=== PATIENT | female | born 1990 | race Caucasian/White ===

== ENCOUNTER 2024-03-13 17:14 | Inpatient (IN) ==
[2024-03-13] MEDS ORDERED: LIDOCAINE 1% LOCAL 20 ML VIAL INFIL PRN (18:08)
[2024-03-13] MEDS: METOCLOPRAMIDE HCL INJ 5 MG/ML 2 ML VIAL IV SCH (18:26)
[2024-03-13] MEDS: ONDANSETRON INJ 2 MG/ML 2 ML VIAL IV PRN (18:26)
[2024-03-13] MEDS: CALCIUM CARBONATE 500 MG CHEWABLE TAB PO PRN (18:26)
[2024-03-13] MEDS: LACTATED RINGER'S 1,000 ML IV PRN (18:32)
[2024-03-13 18:42] LABS: Hematocrit (blood only) 37.5 % (37.0-47.0); Hemoglobin 12.9 g/dl (12.0-16.0); Mean Corpuscular Hemoglobin 28.7 pg (25.0-34.0); Mean Corpuscular Hgb Conc 34.4 g/dL (32.0-36.0); Mean Corpuscular Volume 83.3 fL (80.0-100.0); Mean Platelet Volume 11.2 fL (9.4-12.4); Platelet Count 298 K/uL (130-400); RDW Coefficient of Variation 14.3 % (11.5-14.5); RDW Standard Deviation 41.8 fL (36.4-46.3)
[2024-03-13] MEDS: FAMOTIDINE 20MG IV PUSH 20 MG/5 ML SYR IV SCH (19:07)
[2024-03-13] MEDS ORDERED: CITRIC ACID/SODIUM CITRATE 15 ML UDC PO PRN (19:13)
[2024-03-13] MEDS: OXYTOCIN 30 UNITS/NSS 30 UNITS/500 ML BAG IV PRN (20:19)
[2024-03-13] MEDS ORDERED: BUTORPHANOL TARTRATE 2 MG/ML VIAL IV PRN (20:24)
--- NOTE | 2024-03-13 21:09 | History & Physical Report ---
Date of Service March 13, 2024 Assessment & Plan (1) resulting from in vitro fertilization: Plan: IUP at 39 6/7 weeks with unfavorable cervix at term . cervical balloon successfully placed pitocin induction begun per protocol epidural when requested anticipate vaginal IV and PO meds ordered to control acid reflux and resultant nausea Admission and Anticipated Discharge Date Admission Date: March 13, 2024 History of Present Illness Primary Care Provider: Luz Marina Marie DO Patient is a 33 yo female EDC 03/14/24 who presents at 39 6/7 weeks for IOL because of IVF . has been complicated by AMA status. testing has been reassuring. She has also had intractable acid reflux and nausea. oral meds have helped minimally although Reglan was most effective. GBS negative/ O negative blood type / Rubella -non immune. Allergies Allergy/AdvReac Type Severity Reaction Status Date / Time latex Allergy Rash Verified 03/13/24 17:54 vancomycin Allergy Redness of Verified 03/12/24 10:34 Skin morphine AdvReac Vomiting Verified 03/13/24 17:54 Home Medications Medication Instructions Recorded Confirmed Type doxylamine succinate 25 mg tablet 25 mg PO Q6H PRN Sleep 08/19/23 03/13/24 History (Unisom (doxylamine)) [id number] 1 tab PO DAILY 08/19/23 03/13/24 History [] pyridoxine (vitamin B6) 1 tab PO DAILY 08/19/23 03/13/24 History metoclopramide HCl 10 mg tablet 10 mg PO Q6H PRN headache #14 tabs 09/01/23 03/13/24 Rx (Reglan) aspirin 81 mg tablet,delayed 81 mg PO DAILY 11/03/23 03/13/24 History release promethazine 12.5 mg tablet 12.5 mg PO Q6H PRN nausea and 02/16/24 03/13/24 Rx vomiting #30 tabs ondansetron HCl 8 mg tablet 8 mg PO Q8H PRN nausea and 02/17/24 03/13/24 Rx vomiting #30 tabs Patient History Medical History (Updated 03/13/24 @ 17:52 by Inga Jacobs RN) SAB (spontaneous ) x11 Clavicle fracture Varicella Insulin resistance PCOS (polycystic ovarian syndrome) Migraine Surgical History (Updated 08/19/23 @ 13:45 by Minerva Cantu RN) H/O abdominal surgery Family History (Updated 08/19/23 @ 13:19 by Minerva Cantu RN) Denies family history of Ovarian cancer Breast cancer Colorectal cancer Social History (Updated 08/19/23 @ 13:21 by Minerva Cantu RN) Smoking Status: Never smoker Do You Dip or Chew Tobacco: No; Hx Alcohol Use: No Hx Substance Use: No Preferred Language: Syriac Communication Ability: Effective 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 Beliefs That Will Affect Care: None marital status: marital status details: Benjamen [phone] pts mother Sofia [phone] Current Living Situation: Spouse Current Living Situation Comment: lives with 2 pets current occupational status: employed current occupation: in a [employer] Other Information That Helps Us Care for You: No Feels Safe at Home: Yes Safety Concerns: Feels Safe At This Time Review of Systems All systems reviewed & are unremarkable except as noted in HPI & below Physical Exam Constitutional: WD/WN, vitals as above Psychiatric: A+Ox3, euthymic affect Genitourinary: OB Exam Abdomen: + vertex and + estimated weight (7-8 pounds); no irregular contractions Manual OB Exam: + cervical dilation (closed), + cervical effacement 50% (soft/anterior) and + station -2 OB Exam Monitor Tracing: + external FHT monitor used, + external uterine monitor used, + category I and + normal FHT variability after speculum was placed vaginally, the cervix was visualized and the catheter was placed into the internal os without diffculty. 40 cc sterile water was then instilled into the balloon. the balloon was then placed on traction and secured to her left thigh. patient tolerated procedure well. Results & Data Vital Signs (Past 12 Hours) Vital Signs Temp Pulse Resp BP 03/13/24 19:04 97.7 F 70 16 143/81 H 03/13/24 17:39 81 138/87 03/13/24 17:28 98.1 F 20 Code Status & VTE Plan VTE Prophylaxis Plan VTE Prophylaxis will be ordered: No Coding Level of Care Code None Diagnoses resulting from in vitro fertilization O09.819 CPT Codes Misx Procedure Codes - 55660 Placement of cervical dilator: 32918 Placement of cervical dilator ([id number]) [place] Bulb Placement for Cervical Ripening - 12397 ([id number])
--- NOTE | 2024-03-14 01:55 | Anesthesiology Consultation ---
Date of Service March 14, 2024 Assessment & Plan Chart Review Chart Review: Acceptable Risk for Labor Epidural Consults Requested none ASA ASA2 Proposed Anesthesia Anesthesia Type: Labor Epidural Risk / Benefits Reviewed With: PT / POA / Parent / Guardian, Accepts Plan and Informed Consent Obtained History Height/Weight Height: 5 ft 9 in Weight: 111.13 kg Allergies Allergy/AdvReac Type Severity Reaction Status Date / Time latex Allergy Rash Verified 03/13/24 17:54 vancomycin Allergy Redness of Verified 03/12/24 10:34 Skin morphine AdvReac Vomiting Verified 03/13/24 17:54 Medications Home Medications Medication Instructions Recorded Confirmed Last Taken doxylamine succinate 25 mg tablet 25 mg PO Q6H PRN Sleep 08/19/23 03/13/24 Unknown (Unisom (doxylamine)) [id number] 1 tab PO DAILY 08/19/23 03/13/24 03/12/24 18:00 [] pyridoxine (vitamin B6) 1 tab PO DAILY 08/19/23 03/13/24 03/12/24 18:00 metoclopramide HCl 10 mg tablet 10 mg PO Q6H PRN headache #14 tabs 09/01/23 03/13/24 03/12/24 18:00 (Reglan) aspirin 81 mg tablet,delayed 81 mg PO DAILY 11/03/23 03/13/24 03/12/24 18:00 release promethazine 12.5 mg tablet 12.5 mg PO Q6H PRN nausea and 02/16/24 03/13/24 03/12/24 18:00 vomiting #30 tabs ondansetron HCl 8 mg tablet 8 mg PO Q8H PRN nausea and 02/17/24 03/13/24 03/12/24 18:00 vomiting #30 tabs Active Medications Generic Name Dose Route Start Last Admin Trade Name Freq PRN Reason Stop Dose Admin Calcium Carbonate 500 mg 03/13/24 18:11 03/13/24 23:46 Calcium Carbonate 500 Mg Chewable Tab PO 04/12/24 18:10 500 mg Q6H PRN Administration Indigestion Lactated Ringer's 1,000 mls @ 125 mls/hr 03/13/24 18:08 03/14/24 01:30 Lr IV 03/15/24 18:07 999 mls/hr .Q8H PRN Administration L&D Protocol Protocol Oxytocin 30 units in 500 mls @ 11 mls/hr 03/13/24 18:08 03/14/24 01:15 Pitocin 30 Units/Nss IV 03/15/24 18:07 0.78 units/hr .Q24H PRN 13 mls/hr Labor Induction/Augmentation Titration Protocol 0.66 UNITS/HR Famotidine 20 mg in 5 mls @ 2.5 mls/min 03/13/24 18:30 03/13/24 19:07 Pepcid 20mg Iv Push IV 04/12/24 18:29 2.5 mls/min Q12H BRANDI Administration Metoclopramide HCl 10 mg 03/13/24 18:30 03/14/24 00:32 Metoclopramide Hcl Inj 5 Mg/Ml 2 Ml Vial IV 04/12/24 18:29 10 mg Q6H BRANDI Administration Ondansetron HCl 4 mg 03/13/24 18:11 03/13/24 18:26 Ondansetron Inj 2 Mg/Ml 2 Ml Vial IV 04/12/24 18:10 4 mg Q6H PRN Administration Nausea And Vomiting Past Medical History Medical History SAB (spontaneous ) x11 Clavicle fracture Varicella Insulin resistance PCOS (polycystic ovarian syndrome) Migraine Exercise / Class Metabolic Activity II 4-5 Yardwork/Stairs/Walk up hill Past Family History Family History Denies family history of Ovarian cancer Breast cancer Colorectal cancer Past Surgical History Surgical History H/O abdominal surgery Past Anesthesia History No Hx of Anesthesia Complications and No Family Hx of Anesthesia Complications History of PONV No Hx of PONV and No Hx of Motion Sickness Social History Smoking Status: Never smoker Do You Dip or Chew Tobacco: No Hx Alcohol Use: No Hx Substance Use: No Physical Exam Vital Signs Last Vital Signs Temp 97.7 F 03/13/24 19:04 Pulse 73 03/14/24 01:50 Resp 16 03/14/24 00:06 BP 124/69 03/14/24 01:06 Pulse Ox 96 03/14/24 01:50 ENMT Mouth: no dentition abnormality Thyromental Distance: > or= 3.5 Finger Breadths Mallampati Class: II Neck normal visual inspection Respiratory normal respiratory effort Auscultation: lungs clear to auscultation bilaterally Cardiovascular Rate/Rhythm: regular rate and regular rhythm Testing Laboratory Results 03/13/24 18:22 Blood Type O Negative 03/13/24 18:22 Antibody Screen NEGATIVE 03/13/24 18:22
[2024-03-14] MEDS: BUPIVACAINE 0.25% PF 30 ML VIAL ONE (02:17)
[2024-03-14] MEDS: LIDOCAINE 2%/EPINEPHRINE 1:200,000 20 ML PF ONE (02:17)
[2024-03-14] MEDS ORDERED: ePHEDrine sulfate 50 MG/ML AMP IV PRN (02:18)
[2024-03-14] MEDS ORDERED: ROPIVACAINE 0.5% PF 5 MG/ML 20 ML VIAL EPI PRN (02:18)
[2024-03-14] MEDS: SODIUM CHLORIDE 0.9% PF INJ 10 ML VIAL ONE (02:18)
[2024-03-14] MEDS ORDERED: ONDANSETRON INJ 2 MG/ML 2 ML VIAL IV PRN ×2 (02:18→19:17)
[2024-03-14] MEDS ORDERED: NALBUPHINE HCL 5 MG in SYRINGE 0 ML IV PRN (02:18)
[2024-03-14] MEDS ORDERED: SODIUM CHLORIDE 0.9% PF INJ 10 ML VIAL EPI PRN (02:18)
[2024-03-14] MEDS ORDERED: LIDOCAINE 2% MPF LOCAL 5 ML VIAL EPI PRN (02:18)
[2024-03-14] MEDS ORDERED: NALOXONE HCL 0.4 MG/1 ML VIAL/CARP IV PRN (02:18)
[2024-03-14] MEDS: fentaNYL citrate PF 100 MCG/2 ML VIAL ONE (02:18)
[2024-03-14] MEDS ORDERED: NALOXONE HCL 1 MG in SODIUM CHLORIDE 0.9% 1,000 ML IV PRN (02:18)
[2024-03-14] MEDS: fentANYL 2 MCG/ML BUPIVacaine 0.125%-NSS 100ML BAG ONE (02:21)
[2024-03-14] MEDS: LIDOCAINE 2%/EPINEPHRINE 1:200,000 20 ML PF EPI STA (02:57)
[2024-03-14] MEDS: BUPIVACAINE 0.25% PF 30 ML VIAL EPI STA (02:57)
[2024-03-14] MEDS: fentaNYL citrate PF 100 MCG/2 ML VIAL EPI STA (02:57)
[2024-03-14] MEDS: SODIUM CHLORIDE 0.9% PF INJ 10 ML VIAL EPI STA (02:57)
[2024-03-14] MEDS: ePHEDrine sulfate 50 MG/ML AMP ONE (06:11)
--- NOTE | 2024-03-14 07:25 | Anesthesia Procedure Note ---
Date of Service March 14, 2024 Anesthesia Epidural Re-Dose Vital Signs Temp Pulse Resp BP Pulse Ox 97.9 F 103 H 18 143/81 H 97 03/14/24 05:03 03/14/24 07:22 03/14/24 05:35 03/14/24 07:06 03/14/24 07:22 Notes Pain Intensity: 7 Dilatation (cm): 4.0 Effacement (%): 70 Called by nursing to evaluate epidural as the patient is having increased pain. The epidural was re-dosed with the following medications (all medications via epidural route) after negative aspiration of the epidural catheter for CSF/HEME. 0.125% Bupivacaine (8ml) with 100 mcg Fentanyl After Epidural Re-Dose Mental Status: alert / awake / arousable Pain: improving with treatment Airway Patency, RR, SpO2: stable & adequate BP & HR: stable & adequate
[2024-03-14] MEDS: fentaNYL citrate PF 100 MCG/2 ML VIAL EPI PRN (07:34)
[2024-03-14] MEDS: BUPIVACAINE 0.25% PF 30 ML VIAL EPI PRN (07:34)
[2024-03-14] MEDS: diphenhydrAMINE 50 MG/ML VIAL IV PRN (09:21)
[2024-03-14] MEDS: fentANYL 2 MCG/ML BUPIVacaine 0.125%-NSS 100ML BAG EPI PRN (09:47)
--- NOTE | 2024-03-14 14:35 | Labor Progress Brief Note ---
Date of Service March 14, 2024 Patient states today induction began yesterday she was 9 cm at noon today and currently now she is anterior lip of the dosimetry large anterior lip position is occiput anterior -1 station she is uncomfortable we will try and redose her epidural with anesthesia's assistance to see if we can get her more comfortable heart rate is reassuring at this stage while there is some progress I think it is slow we will have to consider at the next check that she makes progress. Assessment & Plan Admission and Anticipated Discharge Date Admission Date: March 13, 2024 Results & Data Vital Signs (Past 12 Hours) Vital Signs Temp Pulse Resp BP Pulse Ox 03/14/24 14:28 70 96 03/14/24 14:23 72 97 03/14/24 14:18 73 96 03/14/24 14:13 83 96 03/14/24 14:07 75 182/114 H 03/14/24 14:06 83 96 03/14/24 14:01 101 H 95 03/14/24 13:56 70 95 03/14/24 13:51 70 93 03/14/24 13:46 66 95 03/14/24 13:41 71 94 03/14/24 13:36 95 03/14/24 13:36 70 03/14/24 13:36 65 134/70 03/14/24 13:31 88 97 03/14/24 13:26 79 97 03/14/24 13:21 77 97 03/14/24 13:16 78 95 03/14/24 13:11 97 H 97 03/14/24 13:06 81 127/68 95 03/14/24 13:01 83 96 03/14/24 12:56 113 H 91 03/14/24 12:51 102 H 92 03/14/24 12:46 89 94 03/14/24 12:41 97 H 92 03/14/24 12:36 86 92 03/14/24 12:35 85 132/89 03/14/24 12:31 96 H 94 03/14/24 12:26 104 H 96 03/14/24 12:21 108 H 97 03/14/24 12:12 74 98 03/14/24 12:07 66 98 03/14/24 12:05 75 140/82 03/14/24 12:02 75 98 03/14/24 11:57 75 97 04/24/24 11:52 80 98 03/14/24 11:47 76 94 03/14/24 11:42 78 99 03/14/24 11:37 101 H 99 03/14/24 11:35 103 H 136/88 03/14/24 11:32 111 H 98 03/14/24 11:27 66 95 03/14/24 11:22 66 96 03/14/24 11:17 66 97 03/14/24 11:12 75 97 03/14/24 11:07 67 96 03/14/24 11:05 60 139/76 03/14/24 11:02 66 97 03/14/24 10:57 67 97 03/14/24 10:55 97.9 F 16 03/14/24 10:52 87 99 03/14/24 10:47 78 98 03/14/24 10:42 61 98 03/14/24 10:41 72 88 L 03/14/24 10:37 63 93 03/14/24 10:35 63 137/84 03/14/24 10:34 65 89 L 03/14/24 10:32 65 94 03/14/24 10:27 65 99 03/14/24 10:22 69 90 03/14/24 10:21 79 87 L 03/14/24 10:17 64 96 03/14/24 10:12 84 98 03/14/24 10:07 66 95 03/14/24 10:06 63 138/82 03/14/24 10:02 63 96 03/14/24 09:57 67 98 03/14/24 09:52 75 96 03/14/24 09:47 71 97 03/14/24 09:42 71 97 03/14/24 09:37 73 96 03/14/24 09:35 66 133/72 03/14/24 09:32 79 97 03/14/24 09:27 67 100 03/14/24 09:22 72 95 03/14/24 09:17 69 94 03/14/24 09:12 69 95 03/14/24 09:07 76 97 03/14/24 09:05 73 116/60 03/14/24 09:02 72 95 03/14/24 08:57 89 93 03/14/24 08:55 86 86 L 03/14/24 08:52 87 97 03/14/24 08:47 81 95 03/14/24 08:42 74 95 03/14/24 08:37 78 95 03/14/24 08:36 70 118/63 03/14/24 08:32 76 95 03/14/24 08:27 79 93 03/14/24 08:22 85 93 03/14/24 08:17 72 93 03/14/24 08:12 81 93 03/14/24 08:07 70 93 03/14/24 08:06 78 89 L 03/14/24 08:05 80 114/59 L 03/14/24 08:02 64 93 03/14/24 08:00 98.0 F 16 03/14/24 07:57 67 93 03/14/24 07:52 69 92 03/14/24 07:47 87 91 03/14/24 07:42 89 92 03/14/24 07:37 96 H 94 03/14/24 07:36 87 130/62 03/14/24 07:32 95 03/14/24 07:32 92 H 03/14/24 07:32 84 89 L 03/14/24 07:27 85 94 03/14/24 07:22 103 H 97 03/14/24 07:17 91 H 96 03/14/24 07:12 77 95 03/14/24 07:07 101 H 97 03/14/24 07:06 115 H 143/81 H 03/14/24 07:01 102 H 98 03/14/24 06:56 76 93 03/14/24 06:50 71 96 03/14/24 06:45 80 96 03/14/24 06:44 82 88 L 03/14/24 06:40 74 96 03/14/24 06:37 68 160/75 H 03/14/24 06:36 67 86 L 03/14/24 06:35 67 93 03/14/24 06:30 72 97 03/14/24 06:25 68 97 03/14/24 06:20 65 96 03/14/24 06:15 72 98 03/14/24 06:10 70 95 03/14/24 06:06 86 138/74 03/14/24 06:05 84 93 03/14/24 06:00 67 98 03/14/24 05:55 73 97 0424/24 05:50 62 97 03/14/24 05:45 63 97 03/14/24 05:40 63 98 03/14/24 05:36 61 127/62 03/14/24 05:35 69 18 98 03/14/24 05:30 69 98 03/14/24 05:25 81 98 03/14/24 05:20 68 98 03/14/24 05:15 80 99 03/14/24 05:10 87 16 99 03/14/24 05:06 73 158/79 H 03/14/24 05:05 70 98 03/14/24 05:03 16 03/14/24 05:03 97.9 F 16 03/14/24 05:00 65 96 03/14/24 04:55 67 98 03/14/24 04:50 73 98 03/14/24 04:45 73 98 03/14/24 04:40 72 97 03/14/24 04:37 63 121/63 03/14/24 04:35 60 93 03/14/24 04:30 70 97 03/14/24 04:25 66 97 03/14/24 04:20 85 97 03/14/24 04:15 83 96 03/14/24 04:10 107 H 98 03/14/24 04:05 83 124/77 96 03/14/24 04:00 91 H 97 03/14/24 03:55 59 L 96 03/14/24 03:50 64 97 03/14/24 03:45 62 96 03/14/24 03:40 61 96 03/14/24 03:35 64 113/63 95 03/14/24 03:30 64 96 03/14/24 03:25 63 96 03/14/24 03:20 61 96 03/14/24 03:15 64 96 03/14/24 03:10 63 97 03/14/24 03:05 69 116/66 95 03/14/24 03:00 18 03/14/24 03:00 98.1 F 65 18 96 03/14/24 02:55 79 98 03/14/24 02:50 75 97 03/14/24 02:45 72 18 97 03/14/24 02:40 74 98 03/14/24 02:35 18 03/14/24 02:35 18 03/14/24 02:35 18 03/14/24 02:35 18 03/14/24 02:35 97 03/14/24 02:35 78 03/14/24 02:35 68 124/58 L Coding Level of Care Code None
--- NOTE | 2024-03-14 14:48 | Anesthesia Procedure Note ---
Date of Service March 14, 2024 Anesthesia Epidural Re-Dose Vital Signs Temp Pulse Resp BP Pulse Ox 97.7 F 102 H 18 134/88 97 03/14/24 14:47 03/14/24 14:44 03/14/24 14:47 03/14/24 14:39 03/14/24 14:44 Notes Pain Intensity: 7 Dilatation (cm): 9.0 Effacement (%): 90 Called by nursing to evaluate epidural as the patient is having increased pain. The epidural was re-dosed with the following medications (all medications via epidural route) after negative aspiration of the epidural catheter for CSF/HEME. 0.125 Bupivacaine (8ml) with 100 mcg Fentanyl After Epidural Re-Dose Mental Status: alert / awake / arousable Pain: improving with treatment Airway Patency, RR, SpO2: stable & adequate BP & HR: stable & adequate
--- NOTE | 2024-03-14 17:29 | Delivery Summary ---
Vaginal Delivery Summary Date of Service March 14, 2024 Vaginal Delivery Summary and 2nd Degree LAC Spontaneous vaginal delivery the patient was induced by Dr. Parikh yesterday she made good progress and then slow down the anterior lip after some time she was able to progress beyond the anterior lip and then successfully pushed for over a little more than 30 minutes delivering a baby in occiput anterior position fluid was clear no nuchal cord easily delivered only gentle traction of the baby no excessive force live vigorous male infant Cord clamped and cut cord blood obtained placenta removed with traction IV Pitocin started uterine tone improved second-degree tear repaired with 3-0 Vicryl sponge instrument counts correct rectal exam negative for defects [facility] Vaginal Delivery Charge Delivery Type Details: and 2nd Degree LAC
[2024-03-14] MEDS: OXYTOCIN 30 UNITS/NSS 30 UNITS/500 ML BAG IV PRN (17:31)
[2024-03-14] MEDS ORDERED: bisacodyL 10 MG SUPP PR PRN (17:33)
[2024-03-14] MEDS ORDERED: OXYTOCIN 30 UNITS/NSS 30 UNITS/500 ML BAG IV PRN (17:33)
[2024-03-14] MEDS ORDERED: HYDROCORTISONE ACETATE 25 MG SUPP PR PRN (17:33)
--- NOTE | 2024-03-14 17:41 | Anesthesia Procedure Note ---
Date of Service March 14, 2024 Anesthesia Post Epidural Note Vital Signs Vital Signs: Temp Pulse Resp BP Pulse Ox 98.0 F 89 16 137/84 95 03/14/24 16:00 03/14/24 17:35 03/14/24 16:00 03/14/24 17:35 03/14/24 16:34 Pain Intensity Abdomen: Pain Intensity: 2 Notes Mental Status: alert / awake / arousable and participated in evaluation Nausea / Vomiting: adequately controlled Pain: adequately controlled Airway Patency, RR, SpO2: stable & adequate BP & HR: stable & adequate Hydration State: stable & adequate Neuraxial Anesthesia: was administered and sensory block is resolving Anesthetic Complications: no major complications apparent and Pt Satisfied with anesthetic care Epidural: Removed without complications and With tip intact
[2024-03-14] MEDS: ACETAMINOPHEN 325 MG TAB PO PRN (18:14)
[2024-03-14] MEDS: BENZOCAINE 20% SPRY 85 APPLN/85 GM CAN EXT PRN (18:14)
[2024-03-14] MEDS: DIPHTHER/TETAN/PERTUS Vaccine (Tdap, Adol/Adult) 0.5mL IM ONE (19:19)
[2024-03-14] MEDS: FAMOTIDINE 20MG IV PUSH 20 MG/5 ML SYR IV SCH (19:21)
[2024-03-14] MEDS: POLYETHYLENE (MIRALAX) 17 GM PACK PO PRN (20:53)
[2024-03-14] MEDS: DOCUSATE SODIUM 100 MG CAP PO SCH (20:54)
[2024-03-15] MEDS: IBUPROFEN 600 MG TAB PO PRN (03:23)
[2024-03-15 06:07] LABS: Hematocrit (blood only) 32.6 % (37.0-47.0); Hemoglobin 11.1 g/dl (12.0-16.0); Mean Corpuscular Hemoglobin 28.9 pg (25.0-34.0); Mean Corpuscular Volume 84.9 fL (80.0-100.0); Mean Platelet Volume 11.1 fL (9.4-12.4); Platelet Count 240 K/uL (130-400); RDW Coefficient of Variation 14.8 % (11.5-14.5); RDW Standard Deviation 44.9 fL (36.4-46.3); Red Blood Count 3.84 M/uL (4.20-5.40); White Blood Count 27.51 K/ul (4.8-10.8)
--- NOTE | 2024-03-15 06:43 | Obstetrical Progress Note ---
Date of Service March 15, 2024 Assessment & Plan (1) care and examination: Plan Continues to have hiccups and GERD -On pepcid and tums -Start Protonix 40mg daily WBC count -afebrile -continue to trend HTN -PIH labs Admission and Anticipated Discharge Date Admission Date: March 13, 2024 Supervising Physician Co-Signing Physician Notes Resident Physician Supervision Note: I was present with Dr. Ponce during the history and exam. I discussed the case with the resident and agree with the findings and plan as documented in the note. Any exceptions or clarifications are listed here: [None] Documented By: Abeba Paz MD, FACOG Subjective 33 yo (11)1 post day 1 s/p . Continues to have hiccups and GERD sxs. BP slightly elevated, plts decreased by 40,000 since prior to delivery. WBC count 27,500. Ambulation: ambulating normally Voiding: no voiding problems Passing Gas:: Yes Diet Tolerance:: regular diet Lochia:: Small Feeding Type:: breast feeding Current Pain Level: Resting comfortably this AM in NAD. Review of Systems Review of Systems: reviewed, per HPI Physical Exam Physical Exam: General: patient resting comfortably, NAD, answers questions appropriately. Abd: +BS, soft, NT/ND, uterine fundus firm at umbilicus Ext: warm, no clubbing/cyanosis or edema, Shana's neg. Neuro: nonfocal, no facial droop, moving all extremities Results & Data Vital Signs (Past 12 Hours) Vital Signs Pulse BP 03/14/24 19:14 76 130/65 03/14/24 19:08 72 159/72 H 03/14/24 19:06 78 163/93 H Resident Activity Tracking Resident Involvement: Resident Care Provided Care Provided: Adult Hospital Medicine
[2024-03-15] MEDS: CALCIUM CARBONATE 500 MG CHEWABLE TAB PO PRN ×3 (06:49→16:31)
[2024-03-15 07:44] LABS: Albumin Level 2.7 gm/dl (3.4-5.0); BUN Creatinine Ratio 19.1 (10-20); Bilirubin,Total 0.3 mg/dl (0.2-1.0); Calcium 8.1 mg/dl (8.6-10.3); Creatinine Clr Calc Pharmacy 153.4 ml/min; Est GFR (African American) 131.3 ml/min; Est GFR (Non-African American) 113.3 ml/min; Globulin 2.7 gm/dl (2.5-4.0); Potassium 3.4 mmol/L (3.5-5.1); Total Protein 5.4 gm/dl (6.0-8.3)
[2024-03-15] MEDS ORDERED: PANTOprazole 40 MG in SYRINGE 0 ML IV SCH (08:00)
[2024-03-15] MEDS: PRENATAL VITAMIN 1 TAB PO SCH (08:26)
[2024-03-15] MEDS: METOCLOPRAMIDE HCL INJ 5 MG/ML 2 ML VIAL IV PRN (08:27)
--- NOTE | 2024-03-15 13:37 | Gastrointestinal Consultation ---
Date of Consultation March 15, 2024 Assessment & Plan (1) GERD (gastroesophageal reflux disease): Reflux & hiccups without other associated alarming symptoms or LFT abnormalities. Seems likely esophagitis related. -Agree with initiation of Protonix, but would bump to 40 mg BID -Continue Pepcid in addition to the PPI at 20 mg BID -Add Carafate 1 gm ACHS (2) Hiccups: Evidence based initial recommendations from [employer] printed to provide to patient to improve hiccups. A list of interventions to try include: -Hold breath 5-10 seconds -Valsalva maneuver 5-10 seconds -Sip & gargle cold water -Bite into lemon -Pull on tongue -Swallow dry teaspoon of sugar -While sitting, pull knees to the chest compressing for 30 seconds to 1 minute Plan No acute indication for endoscopy. Supervising Physician Co-Signing Physician Notes Agree with SCOTT Carter as above Interviewed and examined patient and agree with above Abd: Soft, NT, ND, +BS Increase Pantoprazole to 40 mg twice daily Add Carafate 1 g by mouth QID AC and HS for 10 days Provided her with handout for physical maneuvers to reduce Hiccups from [employer]. History of Present Illness Reason for Consultation: "hiccups and heartburn, patient request" Attending Physician: Tabitha Black MD, FACOG History of Present Illness Patient is a 33 yo who is 1 post after vaginal delivery. A GI consult was placed by the OB team at the request of the patient as she is having hiccups and GERD. These symptoms began in . She notes that they continue 1 day post . She notes epigastric discomfort and heartburn. There are no LFT abnormalities--AST, ALT, T bili all appropriate. WBC count 27,500. She is on Pepcid and Tums. Reglan and Zofran are ordered prn. Protonix 40 mg daily was just started today. No alarm symptoms of hematemesis, coffee-ground emesis, melena, or focal abdominal pain. Allergies Allergy/AdvReac Type Severity Reaction Status Date / Time latex Allergy Rash Verified 03/13/24 17:54 vancomycin Allergy Redness of Verified 03/12/24 10:34 Skin morphine AdvReac Vomiting Verified 03/13/24 17:54 Home Medications Medication Instructions Recorded Confirmed Type doxylamine succinate 25 mg tablet 25 mg PO Q6H PRN Sleep 08/19/23 03/13/24 History (Unisom (doxylamine)) [id number] 1 tab PO DAILY 08/19/23 03/13/24 History [] pyridoxine (vitamin B6) 1 tab PO DAILY 08/19/23 03/13/24 History metoclopramide HCl 10 mg tablet 10 mg PO Q6H PRN headache #14 tabs 09/01/23 03/13/24 Rx (Reglan) aspirin 81 mg tablet,delayed 81 mg PO DAILY 11/03/23 03/13/24 History release promethazine 12.5 mg tablet 12.5 mg PO Q6H PRN nausea and 02/16/24 03/13/24 Rx vomiting #30 tabs ondansetron HCl 8 mg tablet 8 mg PO Q8H PRN nausea and 02/17/24 03/13/24 Rx vomiting #30 tabs Patient History Medical History SAB (spontaneous ) x11 Clavicle fracture Varicella Insulin resistance PCOS (polycystic ovarian syndrome) Migraine Surgical History H/O abdominal surgery Family History Denies family history of Ovarian cancer Breast cancer Colorectal cancer Social History Smoking Status: Never smoker Do You Dip or Chew Tobacco: No; Hx Alcohol Use: No Hx Substance Use: No Preferred Language: Sami Communication Ability: Effective Warehouse Order Picker Required: No Beliefs That Will Affect Care: None marital status: marital status details: Benjamen [phone] pts mother Sofia [phone] Current Living Situation: Spouse Current Living Situation Comment: lives with 2 pets current occupational status: employed current occupation: in a jail Other Information That Helps Us Care for You: No Feels Safe at Home: Yes Safety Concerns: Feels Safe At This Time Review of Systems Constitutional: no fever and no chills Gastrointestinal: hiccups, GERD Physical Exam Constitutional: well developed Respiratory: normal respiratory effort Psychiatric: Orientation: alert and oriented x 3 PG Care Time/CCT Total # of Minutes Spent Total Time Spent with Patient: Total time spent is greater than 50% in coordination of care (as documented) at patient's floor/unit and/or counseling patient: Coding Level of Care Code 01443 IN/OBS CONSULT LVL 4,60M Diagnoses GERD (gastroesophageal reflux disease) K21.9 Hiccups R06.6
[2024-03-15] MEDS: PANTOprazole 40 MG TAB PO SCH ×2 (14:06→19:46)
[2024-03-15 15:26] LABS: Creatinine Urine Random 56.7 mg/dl; Protein Creatinine Ratio Urine 0.5 (0-0.2); Total Protein Urine Random 26.8 mg/dl (0-11.9)
[2024-03-15] MEDS ORDERED: ONDANSETRON 4 MG OD TAB PO PRN (16:08)
[2024-03-15] MEDS: METOCLOPRAMIDE HCL 10 MG TABLET PO SCH (17:12)
[2024-03-15] MEDS: SUCRALFATE 1 GM/10 ML UDC PO SCH (17:14)
[2024-03-15] MEDS: FAMOTIDINE 20 MG TAB PO SCH (19:45)
[2024-03-15] MEDS: bisacodyL 5 MG TABEC PO SCH (19:46)
[2024-03-16] MEDS: HYDROCORTISONE 1% CRM 30 GM TUBE EXT PRN (00:04)
--- NOTE | 2024-03-16 06:05 | Obstetrical Progress Note ---
Date of Service March 16, 2024 Assessment & Plan (1) care and examination: Plan: Doing well dc today routine post care Plan Continues to have hiccups and GERD, improving -Pepcid 20mg BID -Protonix 40mg BID -Carafate 1g QID -Reglan 10mg q6h -Tums PRN -Counseled by GI re: techniques to decrease episodes of hiccups HTN -resolved Admission and Anticipated Discharge Date Admission Date: March 13, 2024 Supervising Physician Co-Signing Physician Notes Resident Physician Supervision Note: I was present with Dr. Ponce during the history and exam. I discussed the case with the resident and agree with the findings and plan as documented in the note. Any exceptions or clarifications are listed here: PPD#2 doing well. DC home today. Instructions reviewed. Documented By: Jigna Boyce, Subjective 33 yo (11)1 post day 1 s/p . Continues to have hiccups and GERD sxs improved with multi therapy Ambulation: ambulating normally Voiding: no voiding problems Passing Gas:: Yes Diet Tolerance:: regular diet Lochia:: Small Feeding Type:: breast feeding Current Pain Level: minimal Resting comfortably this AM in NAD. Review of Systems Review of Systems: reviewed, per HPI Physical Exam Physical Exam: General: patient resting comfortably, NAD, answers questions appropriately. Abd: +BS, soft, NT/ND, uterine fundus firm at umbilicus Ext: warm, no clubbing/cyanosis or edema, Shana's neg. Neuro: nonfocal, no facial droop, moving all extremities Results & Data Vital Signs (Past 12 Hours) Vital Signs Temp Pulse Resp BP Pulse Ox O2 Del Method 03/15/24 23:07 36.4 C L 83 19 132/77 96 Room Air 03/15/24 19:40 37.0 C 83 18 139/86 99 Room Air Resident Activity Tracking Resident Involvement: Resident Care Provided Care Provided: Adult Hospital Medicine
[2024-03-16 07:06] LABS: Hematocrit (blood only) 31.7 % (37.0-47.0); Hemoglobin 10.6 g/dl (12.0-16.0)
[2024-03-16] MEDS ORDERED: SUCRALFATE 1 GM/10 ML UDC PO SCH ×2 (11:15→13:00)
[2024-03-16] MEDS: SUCRALFATE 1 GM/10 ML UDC PO SCH (11:41)
[2024-03-16] MEDS: MEASLES, MUMPS & RUBELLA VIRUS VACCINE (MMR) 0.5ML VIAL SQ ONE (15:02)
== END 2024-03-16 15:35 | disposition home or self-care (01) | DRG 807 ==
LOC: 4S1 17:23 → 4E2 03-14 20:25
DX: O99.62 Diseases of the digestive system complicating childbirth; Z88.1 Allergy status to other antibiotic agents; O09.813 Supervision of pregnancy resulting from assisted reproductive technology, third trimester; Z91.040 Latex allergy status; Z88.5 Allergy status to narcotic agent; K21.9 Gastro-esophageal reflux disease without esophagitis; R06.6 Hiccough; O70.1 Second degree perineal laceration during delivery; K20.90 Esophagitis, unspecified without bleeding; Z37.0 Single live birth; Z3A.39 39 weeks gestation of pregnancy

== ENCOUNTER 2025-01-18 14:58 | Observation (INO) ==
[2025-01-18] MEDS: ONDANSETRON INJ 2 MG/ML 2 ML VIAL IV STA ×2 (16:18→21:30)
[2025-01-18] MEDS: SODIUM CHLORIDE 0.9% 1,000 ML IV SCH (16:18)
[2025-01-18 16:37] LABS: Hematocrit (blood only) 45.8 % (37.0-47.0); Hemoglobin 16.2 g/dl (12.0-16.0); Mean Corpuscular Hemoglobin 28.2 pg (25.0-34.0); Mean Corpuscular Hgb Conc 35.4 g/dL (32.0-36.0); Mean Corpuscular Volume 79.7 fL (80.0-100.0); Mean Platelet Volume 8.8 fL (9.4-12.4); Platelet Count 461 K/uL (130-400); RDW Standard Deviation 36.7 fL (36.4-46.3); Red Blood Count 5.75 M/uL (4.20-5.40); White Blood Count 25.81 K/ul (4.8-10.8)
[2025-01-18 16:51] LABS: Pregnancy Test, Serum Negative (Negative)
--- NOTE | 2025-01-18 16:58 | Emergency Department Note ---
Impression & Plan Intractable vomiting with nausea, Dehydration ED Provider Note CHIEF COMPLAINT: Flulike symptom HISTORY OF PRESENTING ILLNESS: The patient is a 34-year-old female who arrives to the emergency department for evaluation of vomiting since 4 AM. She reports nausea vomiting and diarrhea. She reports a recent illness last week. She states she tested negative for COVID, flu, and Lyme last week. Patient denies abdominal pain. She reports now she is having right-sided back pain from vomiting multiple times. She reports no chest pain, diaphoresis, or shortness of breath. She states her bowel movements have been frequent, and are now liquid. She reports no sick contacts. She reports she is up-to-date on vaccinations. REVIEW OF SYSTEMS: See HPI for pertinent positives and pertinent negatives. ALLERGIES: Vancomycin, morphine MEDICATIONS: See below PAST MEDICAL HISTORY: See below PHYSICAL EXAM: VITALS: Vitals are noted on the nurse's note and reviewed by myself. Vital signs stable. GENERAL: 34-year-old female, in no acute distress, nondiaphoretic, well- developed well-nourished. SKIN: The skin was without rashes, erythema, edema, or bruising. HEAD: Normocephalic atraumatic. EYES: Pupils equal round and reactive to light and accommodation. Conjunctivae without injection, sclerae without icterus. Extraocular movements intact. NOSE: Patent, turbinates without inflammation or discharge. No sinus tenderness. MOUTH: Mucous membranes moist. No tonsillar hypertrophy. Pharynx without erythema or exudate. Uvula midline. Airway patent. Tongue does not deviate. NECK: Supple without nuchal rigidity. No lymphadenopathy. HEART: Tachycardia with regular rhythm without murmurs gallops or rubs. LUNGS: Clear to auscultation bilaterally without wheezes, rales or rhonchi. No retractions or accessory muscle use. ABDOMEN: Positive bowel sounds x 4. Soft, nontender, without masses or organomegaly. Lorenzana sign negative. No guarding or rebound tenderness. MUSCULOSKELETAL: TTP right flank, full ROM, however painful leaning forward. NEURO: Patient is alert and oriented, with normal affect. DIFFERENTIAL DIAGNOSIS: Viral syndrome, strep pharyngitis, tonsillitis, mononucleosis, retropharyngeal abscess, peritonsillar abscess, otitis media, sinusitis, bronchitis, pneumonia, as well as other pathologies. ED COURSE AND MEDICAL DECISION MAKING: HISTORY FROM INDEPENDENT HISTORIAN: at bedside a secondary historian. MEDICATIONS GIVEN: 2 L bolus NSS, 4 mg IV Zofran, 5 mg Compazine, 15 mg IV Toradol MONITOR: Continuous shelter monitor: Order was placed for continuous shelter monitor. Patient was placed on the shelter monitor and continuous pulse ox. Patient was noted to be in normal sinus rhythm at an initial rate of 125 bpm per my interpretation. INTERPRETATION OF LABS: I interpreted the labs with full lab results as below in the lab section of this note. Pertinent lab results discussed in the MDM section below. INTERPRETATION OF IMAGING: Imaging studies were interpreted by myself and read by radiology as per the imaging section of this note. MDM SUMMARY: The patient is a 34-year-old female who arrives to the emergency department for evaluation of the above-stated complaint. Patient arrived during a time of high acuity, and high-volume. Initial workup was performed in triage including a saline lock, CBC, CMP, lipase, serum qualitative, urinalysis, stool culture, and C. difficile culture. The patient was provided 1 L normal saline, as well as 4 mg of IV Zofran. Upon evaluation of the patient a second liter of IV fluids, as well as an upper respiratory BioFire panel were obtained. Upper respiratory BioFire panel is negative. The patient continues to have nausea, despite IV Zofran. She also reports a slight headache. She was provided 5 mg of IV Compazine, and 15 mg of IV Toradol. For a short period of time the patient's nausea, and vomiting had subsided and she was able to rest. Tachycardia had improved slightly. She reported a significant reduction in pain. Upon reevaluation the patient did begin to vomit again. At that time CT imaging of the abdomen and pelvis with IV contrast was obtained which per my interpretation shows no intra-abdominal process. The patient was admitted for intractable nausea and vomiting, to the [facility] hospitalist group, Dr. Nicholas. He agreed to evaluate, and accept the patient under his care. Please refer to his documentation for further patient workup and care. DIAGNOSIS: Intractable nausea and vomiting The chart was completed utilizing [employer] voice recognition software. Grammatical errors, random word insertions, pronoun errors, and incomplete sentences are an occasional consequence of this system due to software limitations, ambient noise, and hardware issues. Any formal questions or concerns about the content, text, or information contained within the body of this dictation should be directly addressed to the provider for clarification. Past Med/Surg History Problem List (Updated 01/19/25 @ 00:46 by JAVIER Miller) Dehydration (Acute) Leukocytosis Acute diarrhea Intractable vomiting with nausea (Acute) Obesity Migraine Hiccups GERD (gastroesophageal reflux disease) care and examination Need for rhogam due to Rh negative mother Rubella non-immune status, antepartum Elderly multigravida, currently Encounter for anatomic survey Medical History resulting from in vitro fertilization SAB (spontaneous ) x11 Clavicle fracture Varicella Insulin resistance PCOS (polycystic ovarian syndrome) Surgical History H/O abdominal surgery Family History Denies family history of Ovarian cancer Breast cancer Colorectal cancer Social History Smoking Status: Never smoker Do You Dip or Chew Tobacco: No; Hx Alcohol Use: No Hx Substance Use: No Preferred Language: Venezuelan Communication Ability: Effective Spice Cleaner Required: No Beliefs That Will Affect Care: None marital status: marital status details: Benjamen [phone] pts mother Sofia [phone] Current Living Situation: Spouse Current Living Situation Comment: lives with 2 pets current occupational status: employed current occupation: in a [employer] Feels Safe at Home: Yes Allergies Allergies Allergy/AdvReac Type Severity Reaction Status Date / Time latex Allergy Intermediate Rash Verified 01/08/25 08:41 vancomycin Allergy Mild Redness of Verified 01/08/25 08:41 Skin morphine AdvReac Intermediate Vomiting Verified 01/08/25 08:41 Home Meds Home Medications Medication Instructions Recorded Confirmed cholecalciferol (vitamin D3) 50 0 mcg PO DAILY 05/20/24 01/08/25 mcg (2,000 unit) capsule (Vitamin D3) loratadine 10 mg tablet (Claritin) 10 mg PO DAILY 05/20/24 01/08/25 vit no.95-ferrous 1 tab PO DAILY 05/20/24 01/08/25 fumarate 28 mg-folic acid 800 mcg tablet () famotidine 20 mg tablet (Pepcid) 20 mg PO DAILY 10/24/24 01/08/25 Previous Rx's Medication Instructions Recorded amoxicillin 875 mg-potassium 1 tab PO BID #14 tabs 12/05/24 clavulanate 125 mg tablet norethindrone 1 mg-ethinyl 1 tab PO DAILY #84 tabs 12/10/24 estradiol 20 mcg (21)-iron 75 mg (7) tablet (12/10 (28)) Results & Data (ED) Vital Signs Vital Signs - 24 hr 01/18/25 15:17 01/18/25 17:38 01/18/25 17:39 Temperature 36.7 C Temperature Source Oral Pulse Rate 125 H 95 H Pulse Rate [Apical] 106 H Respiratory Rate 19 15 Respiratory Effort / Characteristics Non-Labored Spontaneous Non-Labored Spontaneous Respiratory Depth Normal Normal Blood Pressure 115/73 Blood Pressure [Right Arm] 141/85 H Blood Pressure Mean 87 Blood Pressure Mean [Right Arm] 103 Blood Pressure Position [Right Arm] Semi-fowlers Pulse Oximetry 100 100 100 Oxygen Delivery Method Room Air Room Air Room Air Sepsis Recent Fever Within 48 Hours No Sepsis New/Unexplained Change in Mental Status No Sepsis Action Taken by Nursing No Action Required 01/18/25 18:16 01/18/25 19:00 01/18/25 21:00 Temperature Temperature Source Pulse Rate 96 H Pulse Rate [Apical] 108 H 109 H Respiratory Rate 18 14 Respiratory Effort / Characteristics Non-Labored Spontaneous Non-Labored Spontaneous Respiratory Depth Normal Normal Blood Pressure Blood Pressure [Right Arm] 127/85 127/77 Blood Pressure Mean Blood Pressure Mean [Right Arm] 99 93 Blood Pressure Position [Right Arm] Semi-fowlers Semi-fowlers Pulse Oximetry 98 98 Oxygen Delivery Method Room Air Room Air Sepsis Recent Fever Within 48 Hours Sepsis New/Unexplained Change in Mental Status Sepsis Action Taken by Detention Medications Current Medication List: was personally reviewed by me Laboratory Data Attestation: I reviewed the patient's lab results. 01/18/25 16:20 01/18/25 16:20 Lab Results 01/18/25 01/18/25 01/18/25 Range/Units 16:20 17:49 19:18 WBC 25.81 H (4.8-10.8) K/ul RBC 5.75 H (4.20-5.40) M/uL Hgb 16.2 H (12.0-16.0) g/dl Hct 45.8 (37.0-47.0) % MCV 79.7 L (80.0-100.0) fL MCH 28.2 (25.0-34.0) pg MCHC 35.4 (32.0-36.0) g/dL RDW Std Deviation 36.7 (36.4-46.3) fL RDW Coeff of Allyn 13.0 (11.5-14.5) % Plt Count 461 H (130-400) K/uL MPV 8.8 L (9.4-12.4) fL Immature Gran % (Auto) 0.5 % Neut % (Auto) 94.4 % Lymph % (Auto) 2.4 % Sterling % (Auto) 2.5 % Eos % (Auto) 0.0 % Baso % (Auto) 0.2 % Neut # (Auto) 24.33 H (1.40-6.50) K/uL Lymph # (Auto) 0.63 L (1.20-3.40) K/uL Sterling # (Auto) 0.65 H (0.11-0.59) K/uL Eos # (Auto) 0.01 (0.00-0.50) K/uL Baso # (Auto) 0.06 (0.00-0.20) K/uL Immature Gran # (Auto) 0.13 (0.01-0.20) K/uL RBC Morphology Unremarkable Sodium 139 (136-145) mmol/L Potassium 3.8 (3.5-5.1) mmol/L Chloride 106 (98-107) mmol/L Carbon Dioxide 20 L (21-32) mmol/L Anion Gap 13 H (3-11) BUN 16 (6-23) mg/dl Creatinine 0.68 (0.6-1.2) mg/dl Est Cr Clr Drug Dosing Not Reportable eGFR 115.68 BUN/Creatinine Ratio 23.5 H (10-20) Glucose 134 H (70-99(Fasting)) mg/dl Calcium 10.2 (8.6-10.3) mg/dl Magnesium 1.8 (1.7-2.4) mg/dl Total Bilirubin 1.1 H (0.2-1.0) mg/dl AST 22 (13-39) U/L ALT 37 (7-52) U/L Alkaline Phosphatase 86 (34-104) U/L Total Protein 8.3 (6.0-8.3) gm/dl Albumin 4.9 (3.4-5.0) gm/dl Globulin 3.4 (2.5-4.0) gm/dl Albumin/Globulin Ratio 1.4 (0.9-2) Lipase 29 (11-82) U/L HCG, Qual Negative (Negative) Urine Color Yellow Urine Appearance Clear (Clear) Urine pH 6.0 (4.5-7.5) Ur Specific [place] 1.033 H (1.000-1.030) Urine Protein 1+ H (Negative) Urine Glucose (UA) Negative (Negative) Urine Ketones 4+ H (Negative) Urine Blood Negative (Negative) Urine Nitrite Negative (Negative) Urine Bilirubin Negative (Negative) Urine Urobilinogen Negative (Negative) Ur Leukocyte Esterase Negative (Negative) Urine WBC (Auto) 0-5 (0-5) /hpf Urine RBC (Auto) 0-2 (0-2) /hpf U Hyaline Cast (Auto) 0-2 (0-2) /lpf U Epithel Cells (Auto) 0-2 (0-2) /hpf Urine Bacteria (Auto) None Seen (None Seen) Urine Opiates Screen Neg (Neg) Ur Methadone, Qual Neg (Neg) Urine Fentanyl Screen Neg (Neg) Urine Barbiturates Neg (Neg) Ur Phencyclidine (PCP) Neg (Neg) U Amphetamin/Meth Scrn Neg (Neg) MDMA (Ecstasy) Screen Neg (Neg) U Benzodiazepines Scrn Neg (Neg) Ur Cocaine Metabolite Neg (Neg) U Marijuana (THC) Screen Pos H (Neg) Adenovirus (PCR) Not Detected (NotDetected) B. pertussis DNA (PCR) Not Detected (NotDetected) B.parapertussis DNA PCR Not Detected (NotDetected) C. pneumoniae DNA (PCR) Not Detected (NotDetected) Coronavirus OC43 (PCR) Not Detected (NotDetected) Coronavirus HKU1 (PCR) Not Detected (NotDetected) Coronavirus 229E (PCR) Not Detected (NotDetected) SARS-CoV-2 (PCR) Not Detected (NotDetected) Coronavirus NL63 (PCR) Not Detected (NotDetected) Human Metapneumovir PCR Not Detected (NotDetected) Influenza Type A (PCR) Not Detected (NotDetected) Influenza Type B (PCR) Not Detected (NotDetected) M. pneumoniae (PCR) Not Detected (NotDetected) Parainfluenza 1 (PCR) Not Detected (NotDetected) Parainfluenza 2 (PCR) Not Detected (NotDetected) Parainfluenza 3 (PCR) Not Detected (NotDetected) Parainfluenza 4 (PCR) Not Detected (NotDetected) RSV (PCR) Not Detected (NotDetected) Entero/Rhino (PCR) Not Detected (NotDetected) Administered Medications Lactated Ringer's (Lr) 1,000 mls @ 80 mls/hr IV .[id number] BRANDI Stop: 01/19/25 22:29 Last Admin: 01/18/25 23:07 Dose: 80 mls/hr Documented By: MMF Potassium Chloride (K Ilir / Wtr) 10 meq in 100 mls @ 100 mls/hr IV Q1H BRANDI Stop: 01/19/25 00:44 Last Admin: 01/19/25 00:33 Dose: 100 mls/hr Documented By: Infusion: 01/19/25 00:25 Dose: Infused Documented By: Admin: 01/18/25 23:08 Dose: 100 mls/hr Documented By: MMF Discontinued Medications Sodium Chloride (Nss) 1,000 mls @ 999 mls/hr IV .Q1H1M BRANDI Stop: 01/18/25 16:23 Last Infusion: 01/18/25 17:23 Dose: Infused Documented By: Admin: 01/18/25 16:18 Dose: 999 mls/hr Documented By: MSRachelle Sodium Chloride (Nss) 1,000 mls @ 999 mls/hr IV .Q1H1M ONE Stop: 01/18/25 17:58 Last Infusion: 01/18/25 19:22 Dose: Infused Documented By: Admin: 01/18/25 17:41 Dose: 999 mls/hr Documented By: MMF Prochlorperazine (Compazine) 2 mls @ 1 mls/min IV ONE ONE Stop: 01/18/25 17:29 Last Admin: 01/18/25 17:41 Dose: 1 mls/min Documented By: MMF Sodium Chloride (Nss) 1,000 mls @ 999 mls/hr IV .Q1H1M ONE Stop: 01/18/25 22:01 Last Infusion: 01/18/25 22:35 Dose: Infused Documented By: Admin: 01/18/25 21:29 Dose: 999 mls/hr Documented By: MMF Prochlorperazine 10 mg/ (Syringe) 10 mls @ 5 mls/min IV ONE ONE Stop: 01/18/25 22:46 Last Admin: 01/18/25 23:07 Dose: 5 mls/min Documented By: MMF Pantoprazole Sodium (Protonix) 40 mg in 10 mls @ 5 mls/min IV NOW ONE Stop: 01/18/25 22:32 Last Admin: 01/18/25 23:07 Dose: 5 mls/min Documented By: MMF Famotidine (Pepcid 20mg Iv Push) 20 mg in 5 mls @ 2.5 mls/min IV NOW STA Stop: 01/18/25 22:32 Last Admin: 01/18/25 23:07 Dose: 2.5 mls/min Documented By: MMF Magnesium Sulfate/Dextrose (Magnesium Sulfate / D5w) 1 gm in 100 mls @ 50 mls/hr IV ONE ONE Stop: 01/19/25 00:31 Last Admin: 01/18/25 23:07 Dose: 50 mls/hr Documented By: MMF Ioversol (Optiray 320 100ml) 93 ml IV ONCE ONE Stop: 01/18/25 21:16 Last Admin: 01/18/25 21:16 Dose: 93 ml Documented By: FREDA Ketorolac Tromethamine (Ketorolac Tromethamine 15 Mg/Ml Vial) 15 mg IV NOW ONE Stop: 01/18/25 17:30 Last Admin: 01/18/25 17:41 Dose: 15 mg Documented By: MMF Ondansetron HCl (Ondansetron Inj 2 Mg/Ml 2 Ml Vial) 4 mg IV NOW STA Stop: 01/18/25 15:22 Last Admin: 01/18/25 16:18 Dose: 4 mg Documented By: Ondansetron HCl (Ondansetron Inj 2 Mg/Ml 2 Ml Vial) 4 mg IV NOW STA Stop: 01/18/25 21:02 Last Admin: 01/18/25 21:30 Dose: 4 mg Documented By: [facility] Imaging Data Radiologist's Impression: Abdomen/Pelvis CT 01/18/25 21:01 Exam(s): CT ABDOMEN + PELVIS With Contrast IV Amt: 93ml optiray 320 EXAM: CT Abdomen and Pelvis With Intravenous Contrast CLINICAL HISTORY: Reason for exam: intractable n/v. TECHNIQUE: Axial computed tomography images of the abdomen and pelvis with intravenous contrast. CTDI is 27.03 mGy and DLP is 1488.81 mGy-cm. Automated exposure control was utilized for the study. A dose lowering technique was utilized adhering to the principles of ALARA. CONTRAST: Patient received 93ml optiray 320 of IV contrast COMPARISON: No relevant prior studies available. FINDINGS: Mediastinum: Small amount of fluid in the distal esophagus. ABDOMEN: Liver: Unremarkable. Gallbladder and bile ducts: No radiodense stones. No biliary ductal dilation. Pancreas: Unremarkable. Spleen: Unremarkable. Adrenals: Unremarkable. Kidneys and ureters: No renal or ureteral calculi. No obstructive changes. Stomach and bowel: No winifred mural thickening. Nonobstructive bowel gas pattern. PELVIS: Appendix: Appendix not identified. Bladder: Unremarkable. Reproductive: Unremarkable. ABDOMEN and PELVIS: Intraperitoneal space: Unremarkable. Bones/joints: No acute fracture. Soft tissues: Unremarkable. Vasculature: No acute process. IMPRESSION: No acute findings in the abdomen or pelvis. Electronically signed by: Marlen Pisano M.D. 01/18/25 21:39 PM Discharge Plan Visit Data Chief Complaint: Flu Like Symptoms Stated Complaint: VOMITING, DIARRHEA ED Provider: Gemma Umanzor ED Midlevel Provider: Caridad Madrid Discharge Problem: Intractable vomiting with nausea, Dehydration
[2025-01-18 17:00] LABS: Alanine Aminotransferase 37 U/L (7-52); Albumin Globulin Ratio 1.4 (0.9-2); Albumin Level 4.9 gm/dl (3.4-5.0); Alkaline Phosphatase 86 U/L (34-104); Anion Gap 13 (3-11); Aspartate Aminotransferase 22 U/L (13-39); BUN Creatinine Ratio 23.5 (10-20); Bilirubin,Total 1.1 mg/dl (0.2-1.0); Blood Urea Nitrogen 16 mg/dl (6-23); Calcium 10.2 mg/dl (8.6-10.3); Carbon Dioxide 20 mmol/L (21-32); Chloride 106 mmol/L (98-107); Globulin 3.4 gm/dl (2.5-4.0); Glucose 134 mg/dl (70-99(Fasting)); Lipase 29 U/L (11-82); Potassium 3.8 mmol/L (3.5-5.1); Sodium 139 mmol/L (136-145); Total Protein 8.3 gm/dl (6.0-8.3)
[2025-01-18 17:03] LABS: Basophils # (auto) 0.06 K/uL (0.00-0.20); Basophils % (auto) 0.2 %; Eosinophils # (auto) 0.01 K/uL (0.00-0.50); Immature Granulocytes # (auto) 0.13 K/uL (0.01-0.20); Immature Granulocytes % (auto) 0.5 %; Lymphocytes # (auto) 0.63 K/uL (1.20-3.40); Lymphocytes % (auto) 2.4 %; Monocytes # (auto) 0.65 K/uL (0.11-0.59); Monocytes % (auto) 2.5 %; Neutrophils # (auto) 24.33 K/uL (1.40-6.50); Neutrophils % (auto) 94.4 %; RBC Morphology Unremarkable
[2025-01-18] MEDS: PROCHLORPERAZINE 2 ML IV ONE (17:41)
[2025-01-18] MEDS: KETOROLAC TROMETHAMINE 15 MG/ML VIAL IV ONE (17:41)
[2025-01-18] MEDS: SODIUM CHLORIDE 0.9% 1,000 ML IV ONE ×2 (17:41→21:29)
[2025-01-18 19:06] LABS: Adenovirus PCR Not Detected (NotDetected); Bordetella parapertussis PCR Not Detected (NotDetected); Bordetella pertussis PCR Not Detected (NotDetected); Chlamydia pneumoniae PCR Not Detected (NotDetected); Coronavirus 229E PCR Not Detected (NotDetected); Coronavirus CoV-2 (COVID19)PCR Not Detected (NotDetected); Coronavirus HKU1 PCR Not Detected (NotDetected); Coronavirus NL63 PCR Not Detected (NotDetected); Coronavirus OC43PCR Not Detected (NotDetected); Human Metapneumovirus PCR Not Detected (NotDetected); Influenza A PCR Not Detected (NotDetected); Influenza B PCR Not Detected (NotDetected); Mycoplasma pneumoniae PCR Not Detected (NotDetected); Parainfluenza Virus 1 PCR Not Detected (NotDetected); Parainfluenza Virus 2 PCR Not Detected (NotDetected); Parainfluenza Virus 3 PCR Not Detected (NotDetected); Parainfluenza Virus 4 PCR Not Detected (NotDetected); Respiratory Syncytial VirusPCR Not Detected (NotDetected); Rhinovirus/Enterovirus PCR Not Detected (NotDetected)
[2025-01-18 19:42] LABS: Appearance Urine Clear (Clear); Bacteria Urine Automated None Seen (None Seen); Bilirubin Urine Negative (Negative); Blood Urine Negative (Negative); Cast Urine Automated 0-2 /lpf (0-2); Color Urine Yellow; Epithelial Cell Urine Auto 0-2 /hpf (0-2); Glucose Urine UA Negative (Negative); Ketones Urine 4+ (Negative); Leukocyte Esterase Urine Negative (Negative); Nitrite Urine Negative (Negative); Protein Urine 1+ (Negative); RBC Urine Automated 0-2 /hpf (0-2); Specific Gravity Urine 1.033 (1.000-1.030); Urobilinogen Urine Negative (Negative); WBC Urine Automated 0-5 /hpf (0-5)
[2025-01-18] MEDS: OPTIRAY 320 100ml IV ONE (21:16)
--- NOTE | 2025-01-18 21:41 | CT Scan Report ---
Exam(s): CT ABDOMEN + PELVIS With Contrast IV Amt: 93ml optiray 320 EXAM: CT Abdomen and Pelvis With Intravenous Contrast CLINICAL HISTORY: Reason for exam: intractable n/v. TECHNIQUE: Axial computed tomography images of the abdomen and pelvis with intravenous contrast. CTDI is 27.03 mGy and DLP is 1488.81 mGy-cm. Automated exposure control was utilized for the study. A dose lowering technique was utilized adhering to the principles of ALARA. CONTRAST: Patient received 93ml optiray 320 of IV contrast COMPARISON: No relevant prior studies available. FINDINGS: Mediastinum: Small amount of fluid in the distal esophagus. ABDOMEN: Liver: Unremarkable. Gallbladder and bile ducts: No radiodense stones. No biliary ductal dilation. Pancreas: Unremarkable. Spleen: Unremarkable. Adrenals: Unremarkable. Kidneys and ureters: No renal or ureteral calculi. No obstructive changes. Stomach and bowel: No winifred mural thickening. Nonobstructive bowel gas pattern. PELVIS: Appendix: Appendix not identified. Bladder: Unremarkable. Reproductive: Unremarkable. ABDOMEN and PELVIS: Intraperitoneal space: Unremarkable. Bones/joints: No acute fracture. Soft tissues: Unremarkable. Vasculature: No acute process. IMPRESSION: No acute findings in the abdomen or pelvis. Electronically signed by: Marlen Pisano M.D. 01/18/25 21:39 PM
--- NOTE | 2025-01-18 22:11 | History & Physical Report ---
Date of Service January 18, 2025 Assessment & Plan (1) Intractable vomiting with nausea: (2) Cannabis hyperemesis syndrome concurrent with and due to cannabis abuse: (3) Acute diarrhea: (4) Leukocytosis: (5) Dehydration: Plan Patient is a 34-year-old female with a past medical history of GERD, migraines, PCOS. She presented to the ED due to intractable vomiting and diarrhea since 4 AM 01/18. She is being admitted for intractable nausea and vomiting for IV nausea control, IV fluids, and stool cultures to be obtained. #intractable nausea and vomiting/diarrhea Anion gap 13 4+ ketones in urine hCG negative TSH, LFTs, lipase WNL BioFire and UA negative CT AP negative for any acute changes Pantoprazole IV twice daily Famotidine IV twice daily Nausea control with IV Compazine 10 Mg IV every 6 hours, Zofran and Benadryl for breakthrough nausea - pt had significant relief with Compazine in ED (1st line) can consider trialing dexamethasone or Ativan if above fails to improve nausea 3L NSS bolus in ED - continue IVF resuscitation with LR at 80 mL/hour K+ 3.8, Mg 1.8 - 1 G IV mag + 20 mEq IV K rider on admission IV Tylenol as needed stool cultures ordered UDS positive for THC - capsaicin ordered on admission, continue as needed differential includes but not limited to viral gastritis, C. difficile infection, cannabis hyperemesis syndrome monitor for electrolyte abnormalities - trend bmp, mag, phosphorus #leukocytosis WBC 25.81 with neutrophil predominance Suspect 2/2 acute infection above UA and biofire negative afebrile on admission trend cbc #dehydration Clinically appears dry H&H elevated BUNs/CR 23.5 Urine specific gravity 1.033 tachycardic with HR 109 on admission IV hydration as above with LR Chronic stable diagnoses: GERD p.o. famotidine converted to IV as above Chronic migraines denies current headache VTE ppx: SCDs Diet: clears, advance as tolerated with nausea and vomiting Dispo: med surg obs anticipate discharge home if n/v improves Admission and Anticipated Discharge Date Admission Date: 01/18/25 History of Present Illness Chief Complaint: flu like sx Primary Care Provider: Mirella Wren DO Patient is a 34-year-old female with a past medical history of GERD, migraines, PCOS. She presented to the ED due to intractable vomiting and diarrhea since 4 AM 01/18. She is being admitted for intractable nausea and vomiting for IV nausea control, IV fluids, and stool cultures to be obtained. Patient seen at bedside. She is nauseous and vomiting on exam. She stated she had significant release with IV Compazine earlier, ordered on admission. She stated that she has been sick with flulike symptoms for approximately 2 weeks and about 10 days ago she had similar symptoms of nausea and vomiting for approximately 5 days that resolved on its own - She saw her PCP at this time and tested negative for COVID, flu, Lyme. She did not have diarrhea at this time. She has not had any sick contacts. Today at 4 AM she woke up and has been vomiting every 20 minutes since, the only time she has been able to tolerate p.o. intake is for a few hours after receiving IV Compazine in the ED. She also has had approximately 3 episodes of liquid diarrhea today. She denies any concerning p.o. intake. She did have a course of Augmentin 12/05 for acute sinusitis. She denies fevers, chills, shortness of breath, chest pain, dizziness, lightheadedness, cough, sore throat, rhinorrhea, abdominal pain, difficulty urinating, dysuria, hematuria, hematemesis, hematochezia. She denies using nicotine products, frequent alcohol use, or any illicit drug use including cannabis use. She denies any past history of Crohn's disease, ulcerative colitis, IBD, DM, previous VTE. She denies any past history of Crohn's or ulcerative colitis. She wishes to be full code. Allergies Allergy/AdvReac Type Severity Reaction Status Date / Time latex Allergy Intermediate Rash Verified 01/08/25 08:41 vancomycin Allergy Mild Redness of Verified 01/08/25 08:41 Skin morphine AdvReac Intermediate Vomiting Verified 01/08/25 08:41 Home Medications Medication Instructions Recorded Confirmed Type cholecalciferol (vitamin D3) 50 0 mcg PO DAILY 05/20/24 01/08/25 History mcg (2,000 unit) capsule (Vitamin D3) loratadine 10 mg tablet (Claritin) 10 mg PO DAILY 05/20/24 01/08/25 History vit no.95-ferrous 1 tab PO DAILY 05/20/24 01/08/25 History fumarate 28 mg-folic acid 800 mcg tablet () famotidine 20 mg tablet (Pepcid) 20 mg PO DAILY 10/24/24 01/08/25 History amoxicillin 875 mg-potassium 1 tab PO BID #14 tabs 12/05/24 01/08/25 Rx clavulanate 125 mg tablet norethindrone 1 mg-ethinyl 1 tab PO DAILY #84 tabs 12/10/24 01/08/25 Rx estradiol 20 mcg (21)-iron 75 mg (7) tablet (12/10 (28)) Past Med/Surg History Problem List (Updated 01/19/25 @ 05:53 by Hien Myrick PA-C) Cannabis hyperemesis syndrome concurrent with and due to cannabis abuse Dehydration (Acute) Leukocytosis Acute diarrhea Intractable vomiting with nausea (Acute) Obesity Migraine Hiccups GERD (gastroesophageal reflux disease) care and examination Need for rhogam due to Rh negative mother Rubella non-immune status, antepartum Elderly multigravida, currently Encounter for anatomic survey Medical History resulting from in vitro fertilization SAB (spontaneous ) x11 Clavicle fracture Varicella Insulin resistance PCOS (polycystic ovarian syndrome) Surgical History H/O abdominal surgery Family History Denies family history of Ovarian cancer Breast cancer Colorectal cancer Social History Smoking Status: Never smoker Do You Dip or Chew Tobacco: No; Hx Alcohol Use: No Hx Substance Use: No Preferred Language: Citizen Of [place] Communication Ability: Effective Oil Sprayer Required: No Beliefs That Will Affect Care: None marital status: marital status details: Benjamen [phone] pts mother Sofia [phone] Current Living Situation: Spouse Current Living Situation Comment: lives with 2 pets current occupational status: employed current occupation: in a group home Other Information That Helps Us Care for You: No Feels Safe at Home: Yes Assistive Devices: None Review of Systems Review of Systems: see HPI Physical Exam Physical Exam: The patient is awake, alert and oriented 3, well developed and well nourished, normocephalic and atraumatic, diaphoretic, pale. HEENT- EOMI, mucous membranes dry. Hearing grossly intact. Heart-normal S1 and S2. No murmurs, rubs or gallops. Lungs-clear bilaterally, no respiratory distress, no accessory muscle use. Abdomen-normal bowel sounds and soft. No ascites noted. Non-tender. Extremities- no clubbing, cyanosis, or edema. Rheumatologic-normal range of motion. Psychiatric-normal affect. Results & Data Results & Data Vital Signs (Past 12 Hours) Vital Signs Temp Pulse Pulse Resp BP BP Pulse Ox 01/18/25 21:00 109 H 14 127/77 98 01/18/25 19:00 108 H 18 127/85 98 01/18/25 18:16 96 H 01/18/25 17:39 106 H 15 141/85 H 100 01/18/25 17:38 95 H 100 01/18/25 15:17 36.7 C 125 H 19 115/73 100 O2 Del Method 01/18/25 21:00 Room Air 01/18/25 19:00 Room Air 01/18/25 18:16 01/18/25 17:39 Room Air 01/18/25 17:38 Room Air 01/18/25 15:17 Room Air Laboratory Results Reviewed CBC, CMP, BioFire, mag, hCG, lipase Diagnostic Findings reviewed AP CT Medications Administered ED3L NSS bolus, 4 Mg IV Zofran x 2, Toradol 15 Mg IV, Compazine 10 Mg IV AdmissionCompazine 10 Mg IV, Protonix IV, famotidine ID, LR at 80 mL/hour, 1G IV mag, 2 bags K rider ECG Additional Comments: ordered Code Status & VTE Plan Code Status Full code VTE Prophylaxis Plan VTE Prophylaxis will be ordered: Yes Supervising Physician Co-Signing Physician Notes Attending addendum: I have physically seen this patient, have supervised the CYNTHIA's activities, and agree with the H&P unless as otherwise noted. Assessment and Plan: The patient is a 34-year-old female with past medical history including GERD, migraines, and PCOS. She presents to the emergency department for intractable nausea, vomiting and diarrhea since 4 AM on 01/18. [facility] and treatment of above. Intractable nausea and vomiting/also notes some diarrhea- 4+ ketones in urine hCG negative BioFire and UA negative CT scan abdomen pelvis negative for any acute changes Pantoprazole 40 mg IV twice daily Famotidine 20 mg IV every 12 hours Patient had multiple medications for control nausea, with the most favorable being Compazine, which we continue 10 mg IV every 6 hours Zofran 4 mg IV every 6 hours as needed for breakthrough nausea Benadryl 25 mg IV every 4 hours. Breakthrough nausea Additional possibilities would be a trial of dexamethasone and more Ativan IV if nausea fails to improve Patient status post 3 L normal saline bolus in the ED Continue IV fluids auscultation with LR at 80 mL/h x 1 additional liter Acetaminophen 1 g IV every 8 hours as needed for mild pain or fever Patient denies use of marijuana, however, UDS is positive for THC Capsaicin ordered on admission Remainder main differential at this point includes viral gastritis versus C. dif ficile infection and cannabinol hyperemesis syndrome Remaining orders and notations as noted PG Care Time/CCT Total # of Minutes Spent Total Time Spent with Patient: Total time spent is greater than 50% in coordination of care (as documented) at patient's floor/unit and/or counseling patient: Coding Level of Care Code 13845 INT INP/OBS CARE 3/75MIN Diagnoses Intractable vomiting with nausea R11.2 Cannabis hyperemesis syndrome concurrent with and due to cannabis abuse F12.188 Acute diarrhea R19.7 Leukocytosis D72.829 Dehydration E86.0
[2025-01-18 22:29] LABS: Magnesium 1.8 mg/dl (1.7-2.4)
[2025-01-18] MEDS: FAMOTIDINE 20MG IV PUSH 20 MG/5 ML SYR IV STA (23:07)
[2025-01-18] MEDS: LACTATED RINGER'S 1,000 ML IV SCH (23:07)
[2025-01-18] MEDS: PROCHLORPERAZINE 10 MG in SYRINGE 8 ML IV ONE (23:07)
[2025-01-18] MEDS: PANTOprazole 40 MG/10 ML SYR IV ONE (23:07)
[2025-01-18] MEDS: MAGNESIUM SULFATE / D5W 1 GM/100 ML BAG IV ONE (23:07)
[2025-01-18] MEDS: POTASSIUM CHLORIDE / WTR 10 MEQ/100 ML PLCT IV SCH (23:08)
[2025-01-18 23:24] LABS: Amphetamines+Metham, Urine Neg (Neg); Barbiturates, Urine Neg (Neg); Benzodiazepine, Urine Neg (Neg); Cocaine, Urine Neg (Neg); Fentanyl, Urine Neg (Neg); MDMA (Ecstacy), Urine Neg (Neg); Marijuana, Urine Pos (Neg); Methadone, Urine Neg (Neg); Opiate, Urine Neg (Neg); Phencyclidine, Urine Neg (Neg)
[2025-01-19] MEDS ORDERED: ONDANSETRON INJ 2 MG/ML 2 ML VIAL IV PRN (02:08)
[2025-01-19] MEDS ORDERED: CAPSAICIN CR 0.075% 60 GM TUBE EXT PRN (02:24)
[2025-01-19] MEDS: CAPSAICIN CR 0.075% 60 GM TUBE EXT STA (03:53)
--- NOTE | 2025-01-19 06:52 | Electrocardiogram Report ---
Test Reason : Blood Pressure : */* mmHG Vent. Rate : 93 BPM Atrial Rate : 93 BPM P-R Int : 168 ms QRS Dur : 88 ms QT Int : 356 ms P-R-T Axes : 60 66 35 degrees QTcB Int : 442 ms Normal sinus rhythm Normal ECG No previous ECGs available Confirmed by Carlito Duckworth ([id number]) on 01/19/2025 6:52:16 AM Referred By: REFERRED SELF Confirmed By: Carlito Duckworth
[2025-01-19 07:07] LABS: Basophils # (auto) 0.03 K/uL (0.00-0.20); Basophils % (auto) 0.2 %; Eosinophils # (auto) 0.02 K/uL (0.00-0.50); Eosinophils % (auto) 0.2 %; Hematocrit (blood only) 37.7 % (37.0-47.0); Hemoglobin 13.2 g/dl (12.0-16.0); Immature Granulocytes # (auto) 0.05 K/uL (0.01-0.20); Immature Granulocytes % (auto) 0.4 %; Mean Corpuscular Hemoglobin 28.3 pg (25.0-34.0); Mean Corpuscular Volume 80.7 fL (80.0-100.0); Monocytes % (auto) 6.7 %; Neutrophils # (auto) 9.92 K/uL (1.40-6.50); Neutrophils % (auto) 82.5 %; Platelet Count 294 K/uL (130-400); RDW Coefficient of Variation 13.2 % (11.5-14.5); RDW Standard Deviation 38.2 fL (36.4-46.3); Red Blood Count 4.67 M/uL (4.20-5.40); White Blood Count 12.02 K/ul (4.8-10.8)
[2025-01-19 07:14] LABS: Albumin Globulin Ratio 1.4 (0.9-2); Albumin Level 3.4 gm/dl (3.4-5.0); BUN Creatinine Ratio 14.5 (10-20); Bilirubin,Total 0.6 mg/dl (0.2-1.0); Calcium 7.5 mg/dl (8.6-10.3); Creatinine Clr Calc Pharmacy 182.4 ml/min; Globulin 2.4 gm/dl (2.5-4.0); Magnesium 1.9 mg/dl (1.7-2.4); Phosphorus 1.9 mg/dl (2.5-4.9); Potassium 3.3 mmol/L (3.5-5.1); Total Protein 5.8 gm/dl (6.0-8.3)
[2025-01-19] MEDS ORDERED: POTASSIUM PHOS 3 MMOL/1 ML INFUSION IV STA (08:12)
--- NOTE | 2025-01-19 08:12 | Hospitalist Progress Note ---
Date of Service January 19, 2025 Assessment & Plan (1) Intractable vomiting with nausea: (2) Cannabis hyperemesis syndrome concurrent with and due to cannabis abuse: (3) Acute diarrhea: (4) Leukocytosis: (5) Dehydration: Plan Patient is a 34-year-old female with a past medical history of GERD, migraines, PCOS. She presented to the ED due to intractable vomiting and diarrhea since 4 AM 01/18. She is being admitted for intractable nausea and vomiting for IV nausea control, IV fluids, and stool cultures to be obtained. #intractable nausea and vomiting/diarrhea Anion gap 13 4+ ketones in urine hCG negative TSH, LFTs, lipase WNL BioFire and UA negative CT AP negative for any acute changes Pantoprazole IV twice daily Famotidine IV twice daily Nausea control with IV Compazine 10 Mg IV every 6 hours, Zofran and Benadryl for breakthrough nausea - pt had significant relief with Compazine in ED (1st line) can consider trialing dexamethasone or Ativan if above fails to improve nausea 3L NSS bolus in ED - continue IVF resuscitation with LR at 80 mL/hour K+ 3.8, Mg 1.8 - 1 G IV mag + 20 mEq IV K rider on admission IV Tylenol as needed stool cultures ordered UDS positive for THC - capsaicin ordered on admission, continue as needed differential includes but not limited to viral gastritis, C. difficile infection, cannabis hyperemesis syndrome monitor for electrolyte abnormalities - trend bmp, mag, phosphorus #leukocytosis WBC 25.81 with neutrophil predominance Suspect 2/2 acute infection above UA and biofire negative afebrile on admission trend cbc #dehydration Clinically appears dry H&H elevated BUNs/CR 23.5 Urine specific gravity 1.033 tachycardic with HR 109 on admission IV hydration as above with LR Chronic stable diagnoses: GERD p.o. famotidine converted to IV as above Chronic migraines denies current headache VTE ppx: SCDs Diet: clears, advance as tolerated with nausea and vomiting Dispo: med surg obs anticipate discharge home if n/v improves Admission and Anticipated Discharge Date Admission Date: January 18, 2025 Results & Data Results & Data Vital Signs (Past 12 Hours) Vital Signs Temp Pulse Pulse Pulse Resp BP Pulse Ox 01/19/25 07:22 98.6 F 93 H 20 115/71 95 01/19/25 02:12 99.9 F H 105 H 18 126/67 95 01/19/25 01:30 107 H 20 170/84 H 96 01/19/25 00:00 104 H 20 164/82 H 94 01/18/25 23:41 104 H 01/18/25 23:00 109 H 17 165/87 H 96 01/18/25 21:00 109 H 14 127/77 98 O2 Del Method 01/19/25 07:22 Room Air 01/19/25 02:12 Room Air 01/19/25 01:30 Room Air 01/19/25 00:00 Room Air 01/18/25 23:41 01/18/25 23:00 Room Air 01/18/25 21:00 Room Air PG Care Time/CCT Total # of Minutes Spent Total Time Spent with Patient: Total time spent is greater than 50% in coordination of care (as documented) at patient's floor/unit and/or counseling patient: Coding Diagnoses Intractable vomiting with nausea R11.2 Cannabis hyperemesis syndrome concurrent with and due to cannabis abuse F12.188 Acute diarrhea R19.7 Leukocytosis D72.829 Dehydration E86.0
[2025-01-19] MEDS: PANTOprazole 40 MG/10 ML SYR IV SCH (08:17)
[2025-01-19] MEDS: FAMOTIDINE 20MG IV PUSH 20 MG/5 ML SYR IV SCH (08:18)
[2025-01-19] MEDS: POTASSIUM PHOSPHATE 15 MMOL in SODIUM CHLORIDE 0.9% 250 ML IV ONE (09:42)
[2025-01-19 10:07] LABS: Appearance Urine Clear (Clear); Bilirubin Urine Negative (Negative); Blood Urine Negative (Negative); Color Urine Yellow; Glucose Urine UA Negative (Negative); Ketones Urine 1+ (Negative); Leukocyte Esterase Urine Negative (Negative); Nitrite Urine Negative (Negative); Protein Urine Negative (Negative); Specific Gravity Urine 1.021 (1.000-1.030); Urobilinogen Urine Negative (Negative); pH Urine 6.5 (4.5-7.5)
--- NOTE | 2025-01-19 12:55 | Hospitalist Progress Note ---
Date of Service January 19, 2025 Assessment & Plan (1) Intractable vomiting with nausea: (2) Cannabis hyperemesis syndrome concurrent with and due to cannabis abuse: (3) Acute diarrhea: (4) Leukocytosis: (5) Dehydration: Plan Patient is a 34-year-old female with a past medical history of GERD, migraines, PCOS. She presented to the ED due to intractable vomiting and diarrhea since 4 AM 01/18. She has been sick with flulike symptoms for approximately 2 weeks and about 10 days ago she had similar symptoms of nausea and vomiting for approximately 5 days that resolved on its own - She saw her PCP at this time and tested negative for COVID, flu, Lyme. She did not have diarrhea at that time. She has not had any sick contacts. No history of IBD or IBS. On presentation: CT A/P negative for acute findings. BioFire, UA, hCG negative. TSH, LFTs, lipase WNL. #Intractable Nausea, Vomiting, Diarrhea No further episodes of nausea, vomiting, or diarrhea since being in ED Has not had any significant oral intake - will advance diet and monitor toleranc e prior to discharging home Mild hypokalemia and hypophosphatemia repleted with potassium phosphate 15 mmol IV Continue Pantoprazole IV twice daily, Famotidine IV twice daily Continue Compazine 10 Mg IV every 6 hours (1st line), Zofran and Benadryl for breakthrough nausea Stool studies ordered, not collected UDS positive for THC (though patient denies marijuana use) - continue capsaicin as needed Differential includes but not limited to viral gastritis, cannabis hyperemesis syndrome #Leukocytosis WBC 25.81 with neutrophil predominance on admission, decreased to 12.02 today. Afebrile ? admission leukocytosis artificially high due to volume depletion #Dehydration Continue maintenance IV fluid Encourage oral intake Chronic stable diagnoses: GERD p.o. famotidine converted to IV as above Chronic migraines denies current headache VTE ppx: SCDs Diet: advanced to full liquid Dispo: continue to advance diet to ensure patient can tolerate oral intake prior to discharge home. Anticipate DC 01/20/25 Admission and Anticipated Discharge Date Admission Date: January 18, 2025 Subjective Patient seen and evaluated at bedside. She has not had further nausea or vomiting today. She also has not eaten much, if any of her clear liquid diet. She does report drinking small sips of water which she has managed to keep down. She denies any abdominal pain. No further bowel movements since presenting to the hospital. She notes her back pain (from excessive vomiting yesterday) is resolved today. She notes this sudden onset of nausea/vomiting occurred 1 week ago then resolved on its own. She was fine for a few days then it returned again. She denies any marijuana use. We discussed advancing her diet to ensure she can tolerate eating and drinking prior to being discharged home. No additional complaints or concerns at this time. Physical Exam Physical Exam: General: No acute distress, nondiaphoretic, well-developed, well-nourished. Cardiac: Regular rate and rhythm without murmurs gallops or rubs. Pulm: Clear to auscultation bilaterally without wheezes, rales or rhonchi. Normal respiratory effort. 95% on room air. Abdominal: Soft, nontender, nondistended. Bowel sounds present. Neuro: A&O x3. No focal neurological deficits. Results & Data Results & Data Vital Signs (Past 12 Hours) Vital Signs Temp Pulse Pulse Resp BP Pulse Ox O2 Del Method 01/19/25 07:22 98.6 F 93 H 20 115/71 95 Room Air 01/19/25 02:12 99.9 F H 105 H 18 126/67 95 Room Air 01/19/25 01:30 107 H 20 170/84 H 96 Room Air Laboratory Results Reviewed CBC with differential Reviewed CMP, chemistries Reviewed UA Reviewed talk screen Reviewed bio fire Diagnostic Findings Reviewed CT A/P PG Care Time/CCT Total # of Minutes Spent Total Time Spent with Patient: Total time spent is greater than 50% in coordination of care (as documented) at patient's floor/unit and/or counseling patient: Coding Level of Care Code 97024 SUB INP/OBS CARE 3/50MIN Diagnoses Intractable vomiting with nausea R11.2 Cannabis hyperemesis syndrome concurrent with and due to cannabis abuse F12.188 Acute diarrhea R19.7 Leukocytosis D72.829 Dehydration E86.0
[2025-01-19] MEDS: diphenhydrAMINE 50 MG/ML VIAL IV PRN (13:20)
[2025-01-19] MEDS: PROCHLORPERAZINE 10 MG in SYRINGE 8 ML IV PRN (13:21)
[2025-01-19 20:59] VITALS: PULSE 85
[2025-01-20] MEDS: ACETAMINOPHEN 1,000 MG/100 ML VIAL IV PRN (00:54)
[2025-01-20 06:46] LABS: Hematocrit (blood only) 40.1 % (37.0-47.0); Hemoglobin 13.8 g/dl (12.0-16.0); Mean Corpuscular Hemoglobin 28.2 pg (25.0-34.0); Mean Corpuscular Hgb Conc 34.4 g/dL (32.0-36.0); Mean Platelet Volume 8.9 fL (9.4-12.4); Platelet Count 295 K/uL (130-400); RDW Coefficient of Variation 13.1 % (11.5-14.5); RDW Standard Deviation 39.2 fL (36.4-46.3); Red Blood Count 4.89 M/uL (4.20-5.40); White Blood Count 7.71 K/ul (4.8-10.8)
[2025-01-20 07:04] LABS: BUN Creatinine Ratio 9.5 (10-20); Calcium 8.5 mg/dl (8.6-10.3); Creatinine Clr Calc Pharmacy 159.3 ml/min; Potassium 3.6 mmol/L (3.5-5.1)
[2025-01-20 07:35] VITALS: BP 116/68; RESP 16; TEMP 97.9; O2SAT 98
--- NOTE | 2025-01-20 16:36 | Discharge Summary ---
Discharge Summary Date of Service January 20, 2025 Principal Dx & Hospital Course #1 = Principal Diagnosis (1) Intractable vomiting with nausea: (2) Acute diarrhea: (3) Leukocytosis: (4) Dehydration: Plan Patient is a 34-year-old female with a past medical history of GERD, migraines, PCOS. She presented to the ED due to intractable vomiting and diarrhea since 4 AM 01/18. She has been sick with flulike symptoms for approximately 2 weeks and about 10 days ago she had similar symptoms of nausea and vomiting for approximately 5 days that resolved on its own - She saw her PCP at this time and tested negative for COVID, flu, Lyme. She did not have diarrhea at that time. She has not had any sick contacts. No history of IBD or IBS. Suspect gastritis vs gastroenteritis. On presentation: CT A/P negative for acute findings. BioFire, UA, hCG negative. TSH, LFTs, lipase WNL. Mild hypokalemia and hypophosphatemia repleted with potassium phosphate and augmented appropriately. #Intractable Nausea, Vomiting, Diarrhea No further episodes of nausea, vomiting, or diarrhea since being in ED Advanced diet and well-tolerated. Recommended bland / low fiber diet x few days and advancing as tolerated at home Compazine 10 mg PO q6h PRN nausea/vomiting Pantoprazole 40 mg PO BID x 2 weeks, then recommend once daily dosing given her chronic GERD symptoms -- will defer daily dose Rx to PCP Continue Famotidine 20 mg daily UDS positive for THC (though patient denies marijuana use) - cannot rule out Cannabis hyperemesis syndrome #Leukocytosis WBC 25.81 with neutrophil predominance on admission, down trended and resolved on day of discharge #Dehydration IV fluids while inpatient, encourage oral intake Chronic stable diagnoses: Chronic migraines denies current headache Dispo: Discharged home 01/20/2025 Notes For Next Care Provider Recommend daily Protonix given chronic GERD symptoms Medication Changes From Visit Protonix 40 mg twice daily x 2 weeks Compazine 10 mg q6h as needed nausea/vomiting Admission HPI Per Admitting Provider Patient is a 34-year-old female with a past medical history of GERD, migraines, PCOS. She presented to the ED due to intractable vomiting and diarrhea since 4 AM 01/18. She is being admitted for intractable nausea and vomiting for IV nausea control, IV fluids, and stool cultures to be obtained. Patient seen at bedside. She is nauseous and vomiting on exam. She stated she had significant release with IV Compazine earlier, ordered on admission. She stated that she has been sick with flulike symptoms for approximately 2 weeks and about 10 days ago she had similar symptoms of nausea and vomiting for approximately 5 days that resolved on its own - She saw her PCP at this time and tested negative for COVID, flu, Lyme. She did not have diarrhea at this time. She has not had any sick contacts. Today at 4 AM she woke up and has been vomiting every 20 minutes since, the only time she has been able to tolerate p.o. intake is for a few hours after receiving IV Compazine in the ED. She also has had approximately 3 episodes of liquid diarrhea today. She denies any concerning p.o. intake. She did have a course of Augmentin 12/05 for acute sinusitis. She denies fevers, chills, shortness of breath, chest pain, dizziness, lightheadedness, cough, sore throat, rhinorrhea, abdominal pain, difficulty urinating, dysuria, hematuria, hematemesis, hematochezia. She denies using nicotine products, frequent alcohol use, or any illicit drug use including cannabis use. She denies any past history of Crohn's disease, ulcerative colitis, IBD, DM, previous VTE. She denies any past history of Crohn's or ulcerative colitis. She wishes to be full code. Discharge Exam General: No acute distress, nondiaphoretic, well-developed, well-nourished. Cardiac: Regular rate and rhythm without murmurs gallops or rubs. Pulm: Clear to auscultation bilaterally without wheezes, rales or rhonchi. Normal respiratory effort. 98% on room air. Abdominal: Soft, nontender, nondistended. Bowel sounds present. Neuro: A&O x3. No focal neurological deficits. Discharge Plan Discharge Items Patient Disposition: Home - Self-Care Reason For Visit: INTRACTABLE NAUSEA / VOMITING Discharge Diagnosis: Intractable nausea, vomiting Activity: Resume your previous activity Non-emergency contact: Primary Care Provider Call non-emergency contact if: you have any medication questions, your symptoms worsen and you have a fever Follow-up/Referrals: Mirella Wren DO [Primary Care Provider] - (Follow-up in 1-2 weeks) Diet: Other - See Diet Comment Diet Comment: Advance your diet as tolerated Addtl Attending Provider Instructions: Mirian, You were admitted to the hospital due to intractable nausea and vomiting with diarrhea. I suspect this was due to gastritis (inflammation of your stomach) or gastroenteritis (inflammation of your stomach and intestines). Your workup for a definitive cause was negative/unremarkable, including CT scan of your abdomen and pelvis, viral panel, urinalysis, and laboratory tests. Since your nausea, vomiting, and diarrhea have resolved and you are tolerating eating/drinking now, you are ready to be discharged home. Upon discharge from the hospital: * Take Compazine 10 mg every 6 hours as needed for nausea/vomiting. * Take pantoprazole 40 mg twice daily x 2 weeks. This reduces the amount of acid in your stomach and protects the lining of your stomach. * Continue your other home medications as prescribed. * Advance your diet as tolerated and stay hydrated. * Follow-up with your PCP in 1-2 weeks. Please return to the hospital if you experience any of the following: Persistent nausea with vomiting and/or diarrhea, unable to keep down food/liquids, severe belly pain, chest pain, difficulty breathing, passing out, confusion, or any other symptoms acutely concerning for you. It was a pleasure taking care of you while you were in the hospital! Pending Studies at Discharge: No Stand-Alone Forms: My [facility] [address] [employer], Work/School Release, Smoking Cessation Medications and DC Order Prescriptions: New prochlorperazine maleate [Compazine] 10 mg tablet 10 mg PO Q6H PRN (Reason: nausea and vomiting) Qty: 20 0RF pantoprazole 40 mg tablet,delayed release (DR/EC) 40 mg PO BID 14 Days Qty: 28 0RF Continued norethindrone-e.estradiol-iron [June FE 12/10 (28)] 1 mg-20 mcg (21)/75 mg (7) tablet 1 tab PO DAILY Qty: 84 3RF Rx Instructions: Take one pill everyday at the same time famotidine [Pepcid] 20 mg tablet 20 mg PO DAILY loratadine [Claritin] 10 mg Tablet 10 mg PO DAILY cholecalciferol (vitamin D3) [Vitamin D3] 50 mcg (2,000 unit) Capsule 0 mcg PO DAILY Rx Instructions: PT UNSURE OF STRENGTH PN cmb#[id number]-ferrous fumarate-FA [] 28 mg iron- 800 mcg Tablet 1 tab PO DAILY Discontinued amoxicillin-pot clavulanate 875-125 mg tablet 1 tab PO BID Qty: 14 0RF Discharge Orders: Discharge Order (Routine); Ordered 01/20/25 Ordered By: Velma Rice/Other Patient Handouts: Pantoprazole Delayed Release Oral Tablet, Prochlorperazine Oral Tablet Admission Data Admit Date/Time: 01/18/25 22:48 Attending Provider: Jayy Jacob Admit Provider: Mikel Nicholas Primary Care Provider: Mirella Wren Other Providers: Mikel Nicholas Other Interventions: Discharge Summary Assessment (RN) Last Done: 01/20/25 11:21 Hospital Stay Data Consultations 01/18/25 22:54 ED Decision to Admit Stat Diagnostic Imagining Performed 01/18/25 21:01 CT Abd and Pelvis [CT abd pelvis IV con only] Stat Pending Results Patient Have Any Pending Studies at Discharge: No Discharge Instructions Given to Patient (Per Discharging Provider) Mirian, Markus were admitted to the hospital due to intractable nausea and vomiting with diarrhea. I suspect this was due to gastritis (inflammation of your stomach) or gastroenteritis (inflammation of your stomach and intestines). Your workup for a definitive cause was negative/unremarkable, including CT scan of your abdomen and pelvis, viral panel, urinalysis, and laboratory tests. Since your nausea, vomiting, and diarrhea have resolved and you are tolerating eating/drinking now, you are ready to be discharged home. Upon discharge from the hospital: * Take Compazine 10 mg every 6 hours as needed for nausea/vomiting. * Take pantoprazole 40 mg twice daily x 2 weeks. This reduces the amount of acid in your stomach and protects the lining of your stomach. * Continue your other home medications as prescribed. * Advance your diet as tolerated and stay hydrated. * Follow-up with your PCP in 1-2 weeks. Please return to the hospital if you experience any of the following: Persistent nausea with vomiting and/or diarrhea, unable to keep down food/liquids, severe belly pain, chest pain, difficulty breathing, passing out, confusion, or any other symptoms acutely concerning for you. It was a pleasure taking care of you while you were in the hospital! Total Time Total Time Spent Total Time Spent (In Minutes): Greater than 30 minutes spent completing this discharge process including direct patient care, medication reconciliation, documentation, review of labs and images, and coordination of care. Coding Level of Care Code 10928 INP/OBS DISCH >30 MIN Diagnoses Intractable vomiting with nausea R11.2 Acute diarrhea R19.7 Leukocytosis D72.829 Dehydration E86.0
[2025-01-21 16:12] LABS: Marijuana Quant, GCMS Urine 516 ng/mL (<5)
== END 2025-01-20 12:40 | disposition home or self-care (01) ==
LOC: EDINP 14:58 → ED 14:58 → SUATTDRO 22:48 → 3N 01-19 01:38